=== PATIENT | male | born 1945 | race Caucasian/White ===

== ENCOUNTER 2020-01-04 08:34 | Inpatient (IN) | payer MEDICARE, OTHER ==
--- NOTE | 2020-01-04 09:50 | ED ---
General Adult HPI - General Chief complaint: Recheck/Abnormal Lab/Rx Stated complaint: Cough Time Seen by Provider: 01/04/20 08:45 Source: patient, EMS, RN notes reviewed, old records reviewed Mode of arrival: EMS Limitations: no limitations - History of Present Illness Initial comments: This is a 74-year-old male who presents emergency Department because they were tested positive for COVID. Patient has no complaints per EMS there is been no complaints. Patient denies headache patient denies numbness weakness per patient denies lightheadedness dizziness. Patient denies chest pain or palpitations. Patient denies any shortness of breath. Patient states he has an occasional cough but no sputum production. Patient denies any abdominal pain. Patient denies any nausea vomiting diarrhea. Patient denies any rashes or lesions or areas of erythema. Patient states he does not know why he is in a shelter he does have a history of COPD and he states is nonambulatory - Related Data Home Medications Medication Instructions Recorded Confirmed Acetaminophen Tab [Tylenol] 650 mg PO Q4H PRN 01/04/20 01/04/20 Ascorbic Acid [Vitamin C] 1,000 mg PO DAILY@0700 01/04/20 01/04/20 Atorvastatin [Lipitor] 20 mg PO HS@209901/04/20 01/04/20 Dorzolamide 2% [Trusopt 2%] 1 drops BOTH EYES DAILY@0700 01/04/20 01/04/20 Eltrombopag Olamine [Promacta] 50 mg PO HS@209901/04/20 01/04/20 Isosorbide Mononitrate ER [Imdur] 30 mg PO DAILY@0700 01/04/20 01/04/20 Med Plus 90 ml PO TID@0900,1300,199901/04/20 01/04/20 Sucralfate [Carafate] 1 gm PO BID@0700,209901/04/20 01/04/20 Timolol 0.5% Ophth Soln [Timoptic 1 drop BOTH EYES BID@0700,209901/04/20 01/04/20 0.5% Ophth Soln] bisacodyL [Dulcolax] 10 mg RECTAL DAILY PRN 01/04/20 01/04/20 Allergies Allergy/AdvReac Type Severity Reaction Status Date / Time tuberculin, purified protein Allergy Unknown Verified 01/04/20 11:17 deriva Review of Systems ROS Statement: Those systems with pertinent positive or pertinent negative responses have been documented in the HPI. ROS Other: All systems not noted in ROS Statement are negative. Past Medical History Past Medical History: COPD, GERD/Reflux, Hypertension, Renal Disease Additional Past Medical History / Comment(s): hydrocephlus, dysphagia History of Any Multi-Drug Resistant Organisms: None Reported Past Surgical History: Unable to Obtain Past Psychological History: Anxiety, Bipolar, Schizoaffective Disorder Smoking Status: Former smoker Past Alcohol Use History: None Reported, Abuse Past Drug Use History: None Reported General Exam - General Exam Comments Initial Comments: GENERAL: Patient is well-developed and well-nourished. Patient is nontoxic and well- hydrated and is in no acute distress. ENT: Neck is soft and supple. No significant lymphadenopathy is noted. Oropharynx is clear. Moist mucous membranes. Neck has full range of motion without eliciting any pain. EYES: The sclera were anicteric and conjunctiva were pink and moist. Extraocular movements were intact and pupils were equal round and reactive to light. Eyelids were unremarkable. PULMONARY: Unlabored respirations. Good breath sounds bilaterally. No audible rales rhonchi or wheezing was noted. CARDIOVASCULAR: There is a regular rate and rhythm without any murmurs gallops or rubs. ABDOMEN: Soft and nontender with normal bowel sounds. SKIN: Skin is clear with no lesions or rashes and otherwise unremarkable. NEUROLOGIC: Patient is alert and oriented 2. Cranial nerves II through XII are grossly int act. Patient's legs are weak bilaterally but no leg is weaker than the other. Normal speech, volume and content. Symmetrical smile. MUSCULOSKELETAL: Normal extremities with adequate strength and full range of motion. No lower extremity swelling or edema. No calf tenderness. LYMPHATICS: No significant lymphadenopathy is noted PSYCHIATRIC: Normal psychiatric evaluation. Limitations: no limitations Course Vital Signs 01/04/20 01/04/20 01/04/20 08:43 09:00 09:30 Temperature 98.2 F Pulse Rate 70 64 81 Respiratory 18 16 16 Rate Blood Pressure 129/79 129/84 141/79 O2 Sat by Pulse 99 99 100 Oximetry 01/04/20 01/04/20 01/04/20 10:00 10:30 11:00 Temperature Pulse Rate 86 61 66 Respiratory 15 18 18 Rate Blood Pressure 116/76 116/69 103/81 O2 Sat by Pulse 99 100 100 Oximetry 01/04/20 11:30 Temperature Pulse Rate 65 Respiratory 15 Rate Blood Pressure 125/70 O2 Sat by Pulse 99 Oximetry Medical Decision Making - Medical Decision Making Chest x-ray shows no obvious infiltrates. Patient remained asymptomatic throughout his ED stay. Was determined the patient needed to be admitted after the patient been discharged for over 5 hours so I admitted the patient to Dr. Perea he accepted e admission. Disposition Clinical Impression: COVID-19 Disposition: ADMITTED IP TO THIS HOSP Condition: Good Additional Instructions: Patient should be quarantined until he is cleared by a physician Referrals: Johnathon Blankenship MD [Primary Care Provider] - 1-2 days Time of Disposition: 10:24
--- NOTE | 2020-01-04 09:54 | XR ---
EXAMINATION TYPE: XR chest 1V portable DATE OF EXAM: 01/04/2020 COMPARISON: NONE HISTORY: Positive Covid test, shortness of breath and cough TECHNIQUE: Single frontal view of the chest is obtained. FINDINGS: There is patchy density at the lung bases. The cardiac silhouette size is within normal li mits. Aorta is dense. Patient is rotated. The osseous structures are remarkable for possible spinal curvature. IMPRESSION: Patchy basilar atelectasis or scarring suspected. However as indicated.
[2020-01-04] MEDS ORDERED: SODIUM CHLORIDE 0.9% 1,000 ML IV ONE (15:04)
[2020-01-04] MEDS ORDERED: bisacodyL 10 MG SUPP RECTAL PRN (17:35)
[2020-01-04] MEDS ORDERED: ACETAMINOPHEN TAB 325 MG TAB PO PRN (17:35)
--- NOTE | 2020-01-04 17:57 | XR ---
EXAMINATION TYPE: XR chest 1V portable DATE OF EXAM: 01/04/2020 COMPARISON: NONE HISTORY: Same-day radiograph 0937 hours. TECHNIQUE: Single frontal view of the chest is obtained. FINDINGS: There is unchanged mild bibasilar interstitial opacity. No pleural effusion, or pneumothor ax seen. The cardiac silhouette size is within normal limits. The osseous structures are intact. IMPRESSION: Mild bibasilar opacity may represent atelectasis/scarring versus infiltrate.
[2020-01-04 19:33] LABS: ALT 13 U/L (4-49); AST 27 U/L (17-59); African American GFR (CKD) 76 (>60 ml/min/1.73 sqM); Albumin 3.5 g/dL (3.5-5.0); Albumin/Globulin Ratio 1.3; Alkaline Phosphatase 90 U/L (38-126); Anion Gap 7 mmol/L; Blood Urea Nitrogen 31 mg/dL (9-20); C Reactive Protein 37.3 mg/L (<10.0); Calcium 8.7 mg/dL (8.4-10.2); Carbon Dioxide 25 mmol/L (22-30); Chloride 107 mmol/L (98-107); Globulin 2.8 g/dL; Glucose 89 mg/dL (74-99); LDH 624 U/L (313-618); Non-African American GFR(CKD) 66 (>60 ml/min/1.73 sqM); Potassium 4.1 mmol/L (3.5-5.1); Sodium 139 mmol/L (137-145); Total Bilirubin 0.6 mg/dL (0.2-1.3); Total Protein 6.3 g/dL (6.3-8.2)
[2020-01-04] MEDS ORDERED: [UNRECOGNIZED DRUG - OTHER] PO SCH (20:00)
[2020-01-04] MEDS: ALBUTEROL HFA INHALER INHALATION SCH (20:48)
[2020-01-04] MEDS: ZINC SULFATE 220 MG CAP PO SCH (21:47)
[2020-01-04] MEDS: ATORVASTATIN 20 MG TAB PO SCH (21:47)
[2020-01-04] MEDS: dexAMETHasone 2 MG TAB PO SCH (21:47)
[2020-01-04] MEDS: SUCRALFATE 1 GM TAB PO SCH (21:48)
[2020-01-04] MEDS: TIMOLOL 0.5% OPHTH DROPS 5 ML BTL BOTH EYES SCH (21:48)
[2020-01-04] MEDS: ENOXAPARIN 40 MG/0.4 ML SYRINGE SQ SCH (21:48)
[2020-01-04] MEDS: INSULIN ASPART (NovoLOG) 100 UNIT/ML VIAL SQ SCH (21:49)
--- NOTE | 2020-01-04 22:07 | HP ---
HISTORY AND PHYSICAL DATE OF SERVICE: 01/04/2020 CHIEF COMPLAINTS: COVID positive and cough. HISTORY OF PRESENT ILLNESS: This 74-year-old gentleman with a past medical history of multiple medical problems, including COPD, GERD, hypertension, history of DJD, history of hydrocephalus, dysphagia, anxiety, bipolar, schizophrenia, schizoaffective disorder, being followed by Dr. Johnathon Blankenship in the outpatient setting, was staying in [facility]. Apparently the patient was complaining of cough for the past few days and the patient tested positive for COVID. The patient was taken to [facility] and was admitted for further evaluation and treatment. There is no history of any shortness of breath, no history of any headache, loss of consciousness, seizures. There is no sputum production with this cough. Chest x-ray showed minimal infiltrates in the base and the patient was admitted for further evaluation and treatment. There is no history of any documented contact with COVID. PAST MEDICAL HISTORY: History of COPD, GERD, hypertension, history of hydrocephalus, anxiety, bipolar, depression. HOME MEDICATIONS: Home medications prior to admission include Dulcolax, Med Plus, Tylenol, Timoptic, Carafate, ProAmatine, Imdur, Trusopt, Lipitor, vitamin C. ALLERGIES: TUBERCULIN. Family history, social history, review of systems could not be taken because of the baseline mental status. PHYSICAL EXAMINATION: Patient is mildly confused. Pulse 65, blood pressure 124/79, respiration 18, temperature 97.7, pulse ox 96% on room air. HEENT: Conjunctivae normal. NECK: No jugular venous distention. CARDIOVASCULAR SYSTEM: S1, S2 muffled. RESPIRATORY SYSTEM: Breath sounds diminished at the bases. A few scattered rhonchi and crackles. ABDOMEN: Soft, non-tender. LEGS: No edema. No swelling. NERVOUS SYSTEM: Mild diffuse weakness. LYMPHATICS: No lymph node palpable in neck, axillae or groin. SKIN: No ulcer, rash, bleeding. JOINTS: No active deforming arthropathy. LABS: BUN is 31. Otherwise, LDH is 624 and C-reactive protein is 373. ASSESSMENT: 1. Acute COVID-19 infection with possible bibasilar pneumonia, COVID pneumonia. 2. Increased CRP and LDH. 3. History of chronic obstructive pulmonary disease. 4. History of gastroesophageal reflux disease. 5. Hypertension. 6. History of chronic kidney disease. 7. History of hydrocephalus. 8. History of dysphagia. 9. Chronic metabolic encephalopathy. 10.Anxiety, bipolar, schizoaffective disorder. 11.Remote history of nicotine dependence. 12.Remote history of ETOH abuse. RECOMMENDATIONS AND DISCUSSION: In this 74-year-old gentleman who presented with multiple complex medical issues, we will monitor the patient closely, continue the current medications, continue symptomatic treatment, continue bronchodilators, zinc, Lovenox. Will also obtain a D- dimer. If it is positive, I would recommend CT angio of the chest. Otherwise CT chest without any IV contrast looking for any infiltrates. We will also consult Dr. Sherman regarding the COVID management as well as COPD management. Evaluate the patient for possible remdesivir. A copy of this dictation is being forwarded to Dr. Johnathon Blankenship, who is the primary physician. DIANNE / MAYA: [id number] /
[2020-01-04] MEDS: ELTROMBOPAG OLAMINE 50 MG PO SCH (22:31)
[2020-01-05 01:32] LABS: Glucose,Whole Blood 92 mg/dL (75-99)
[2020-01-05 06:22] LABS: Basophils % (A) 0 %; Eosinophils % (A) 0 %; HCT 43.2 % (39.0-53.0); HGB 13.6 gm/dL (13.0-17.5); Lymphocytes # (A) 0.9 k/uL (1.0-4.8); Lymphocytes % (A) 16 %; MCH 29.2 pg (25.0-35.0); MCHC 31.4 g/dL (31.0-37.0); MCV 92.7 fL (80.0-100.0); Mean Platelet Volume 9.2; Monocytes # (A) 0.1 k/uL (0-1.0); Monocytes % (A) 2 %; Neutrophils # (A) 4.3 k/uL (1.3-7.7); Neutrophils % (A) 81 %; Platelet Count 176 k/uL (150-450); RBC 4.66 m/uL (4.30-5.90); RDW 13.8 % (11.5-15.5); WBC 5.3 k/uL (3.8-10.6)
[2020-01-05 07:24] LABS: Glucose,Whole Blood 115 mg/dL (75-99)
[2020-01-05] MEDS: INSULIN ASPART (NovoLOG) 100 UNIT/ML VIAL SQ SCH ×4 (07:31→21:05)
[2020-01-05] MEDS: dexAMETHasone 2 MG TAB PO SCH (08:09)
[2020-01-05] MEDS: ASCORBIC ACID 500 MG TAB PO SCH (08:09)
[2020-01-05] MEDS: ZINC SULFATE 220 MG CAP PO SCH (08:09)
[2020-01-05] MEDS: SUCRALFATE 1 GM TAB PO SCH ×2 (08:09→21:06)
[2020-01-05] MEDS: ISOSORBIDE MONONITRATE ER 30 MG TAB.ER.24H PO SCH (08:09)
[2020-01-05] MEDS: TIMOLOL 0.5% OPHTH DROPS 5 ML BTL BOTH EYES SCH ×2 (08:10→21:10)
[2020-01-05] MEDS: ENOXAPARIN 40 MG/0.4 ML SYRINGE SQ SCH ×2 (08:10→21:00)
[2020-01-05] MEDS: DORZOLAMIDE HCL 2% DROPS 10 ML BTL BOTH EYES SCH (08:10)
[2020-01-05] MEDS: ALBUTEROL HFA INHALER INHALATION SCH ×3 (08:17→20:06)
[2020-01-05 09:17] LABS: African American GFR (CKD) 69.6 (60.0-200.0); Anion Gap 8.8 mmol/L (4.00-12.00); BUN/Creat Ratio 27.5 Ratio (12.00-20.00); Calcium 8.6 mg/dL (8.7-10.3); Carbon Dioxide 25.2 mmol/L (21.6-31.8); Non-African American GFR(CKD) 60.1 (60.0-200.0); Potassium 4.8 mmol/L (3.5-5.5)
[2020-01-05 11:31] LABS: Glucose,Whole Blood 235 mg/dL (75-99)
--- NOTE | 2020-01-05 14:54 | CONS ---
CONSULTATION HISTORY: This is a 74-year-old male who was admitted through the emergency room. The patient apparently came from the [facility] and went to [facility]. The patient was then transferred to our emergency room by EMS. The patient apparently tested positive for COVID. The patient apparently has had no complaints. Denies any headache. Denies any numbness or weakness. Denies any lightheadedness and dizziness. He also denied any chest pain or palpitations, shortness of breath, cough, wheezing, phlegm production, fever, chills, nausea, vomiting, diarrhea, abdominal pain or any genitourinary complaints. The patient is completely asymptomatic. The patient has a saturation of 97% on room air. The patient has been afebrile here. Again not sure why this patient was admitted to this hospital. MEDICATIONS: Reviewed. They include Tylenol, ascorbic acid, Lipitor eye drops, Promacta, Imdur, Carafate and Dulcolax. ALLERGIES: PPD. MEDICAL HISTORY: COPD, GERD, hypertension, and chronic kidney disease. He also apparently has a history of hydrocephalus, and dysphagia. SURGICAL HISTORY: Not known. SOCIAL HISTORY: Positive for previous tobacco use. Alcohol history is not reported, but apparently there is possibly some history of alcohol abuse in the past. No illicit drugs. FAMILY HISTORY: Noncontributory. REVIEW OF SYSTEMS: CONSTITUTIONAL: Negative. NEUROLOGIC: Negative. HEENT: Negative. CARDIOVASCULAR: Negative. PULMONARY: Negative. GI: Negative. : Negative. RHEUMATOLOGIC: Negative. IMMUNOLOGIC: Negative. ENDOCRINOLOGIC: Negative. DERMATOLOGIC negative. PHYSICAL EXAMINATION: VITAL SIGNS: Current vital signs are reviewed, temperature 98.1 and he has been afebrile since she has been here. Heart rate 75, respiratory rate 17, blood pressure 126/80, mean 95, and room air saturation 97%. GENERAL: Appears in no acute distress. HEENT: Examination is grossly unremarkable. NECK: Supple full range of motion. CARDIOVASCULAR: Examination reveals regular rhythm rate. Heart rate 75. S1, S2 normal. No S3, S4, or murmur. LUNGS: Reveal clear breath sounds. No wheezes, rhonchi, or crackles. Breath sounds equal bilaterally. ABDOMEN: Soft bowel sounds are heard. EXTREMITIES: Intact. No cyanosis, clubbing, or edema. SKIN: Without rash. NEUROLOGIC: Examination is brief but nonfocal. LAB DATA: Reviewed. CBC is normal. D-dimer 0.77. Sodium, potassium, chloride, CO2 all normal anion gap normal. BUN and creatinine were 33 and 1.2. Calcium 8.6, LDH 624. C- reactive protein 37.3. Procalcitonin is normal at 0.06. Microbiologic studies are negative. Chest x-ray from January 03 suggests some minimal atelectasis at the bases. Chest x-ray followup on the same day. Again, shows evidence of primarily atelectasis. MEDICATIONS: Medications are reviewed. The patient is currently on Tylenol, albuterol inhaler, ascorbic acid, Lipitor, Dulcolax, Decadron, eye drops, Promacta, Lovenox, insulin, Imdur, 0.9 at 75 mL an hour, Carafate, timolol eye drops, and zinc. ASSESSMENT: 1. COVID-19 positive patient, lacks all complaints at this time including pulmonary complaints. 2. History of apparent COPD from previous tobacco use. 3. History of gastroesophageal reflux disease. 4. Hypertension. 5. Chronic kidney disease. 6. Hyperlipidemia. 7. History of hydrocephalus. 8. History of dysphagia. PLAN: The patient's medications are reviewed. Everything appears to be appropriate. I do not know that I would even give this patient Decadron at this time. Again, he lacks all pulmonary complaints including shortness of breath, chest tightness wheezing cough or phlegm production. X-rays are pretty unremarkable. No additional recommendations are made. In my opinion, the patient can be transferred back to the [facility]. MMARLYNL / DARION: [id number] /
[2020-01-05 16:39] LABS: Glucose,Whole Blood 204 mg/dL (75-99)
--- NOTE | 2020-01-05 19:00 | PN ---
PROGRESS NOTE DATE OF SERVICE: 01/05/2020 This 74-year-old gentleman admitted with acute COVID-19 infection, Covid -19 pneumonia is being closely monitored at this time. The patient transferred from an ECF at this time. CRP is 37.3, procalcitonin is normal. D-dimer was 0.77. A chest x-ray which was personally reviewed by me showed mild bibasilar opacity, possible atelectasis versus infiltrate. Past medical history reviewed. REVIEW OF SYSTEM: Could not be taken, the patient mildly confused. MEDICATIONS: Current medications are reviewed and include: 1. Tylenol. 2. Ventolin. 3. Vitamin C. 4. Lipitor. 5. Hexadrol. 6. Lovenox. 7. Imdur. 8. Doses are reviewed. PHYSICAL EXAMINATION: Alert and oriented times three. Pulse 75. Blood pressure 126/88, respirations 17, temperature 98.2, pulse ox 97% on room air. HEENT: Conjunctivae normal. NECK: No JVD. CARDIOVASCULAR: S1, S2 muffled. RESPIRATION: Breath sounds diminished in the bases. A few scattered rhonchi and crackles. ABDOMEN: Soft. NERVOUS SYSTEM: No focal deficits. ASSESSMENT: 1. Acute COVID-19 infection with possible bibasilar pneumonia. Covid pneumonia. 2. Increased CRP, LDH. 3. History of chronic obstructive pulmonary disease. 4. Elevated D-dimer, rule out pulmonary embolism. 5. History of gastroesophageal reflux disease. 6. Hypertension. 7. History of chronic kidney disease. 8. History of hydrocephalus. 9. History of dysphagia. 10.Chronic metabolic encephalopathy. 11.Anxiety, bipolar, schizoaffective disorder. 12.Remote history of nicotine dependence. 13.Remote history of ETOH abuse. RECOMMENDATIONS AND DISCUSSION: Recommend to continue current medications, management and symptomatic treatment. I would also recommend a CT angio because of elevated D-dimer. We will continue to monitor. Guarded prognosis because of multiple complex medical issues. Further recommendations to follow. The patient is on Lovenox 40 mg subcu b.i.d. and other medications. Prognosis guarded. MMODL / IJN: [id number] /
--- NOTE | 2020-01-05 20:39 | CT ---
EXAMINATION TYPE: CT angio chest DATE OF EXAM: 01/05/2020 COMPARISON: None HISTORY: SOB, positive covid CT DLP: 258.5 mGycm Automated exposure control for dose reduction was used. CONTRAST: Performed with IV Contrast, patient injected with 76cc mL of Isovue 370. Images obtained from the thoracic inlet to the diaphragm with IV contrast. There are 3-D post process ed images. There is diffuse pulmonary emphysema. There is no mediastinal adenopathy. There are no hilar masses. There is normal contrast opacification of the pulmonary arteries. There are no filling defects. There is some mild interstitial infiltrate and subsegmental atelectasis at the posterior lung bases. There is no pulmonary mass. There is no pleural effusion. Facet aorta is intact. There is no sign of aneurysm or dissection. Ascending aorta measures 3.2 cm. Thoracic spine is intact. Sternum is intact. I see no bony destructive process. IMPRESSION: Pulmonary emphysema and pulmonary interstitial fibrotic changes. No evidence of pulmonary embolism.
[2020-01-05 20:47] LABS: Glucose,Whole Blood 164 mg/dL (75-99)
[2020-01-05] MEDS: ATORVASTATIN 20 MG TAB PO SCH (21:06)
[2020-01-06] MEDS: ELTROMBOPAG OLAMINE 50 MG PO SCH ×2 (00:39→20:21)
[2020-01-06 06:01] LABS: Basophils % (A) 0 %; Eosinophils % (A) 0 %; HCT 36.8 % (39.0-53.0); Lymphocytes # (A) 1.1 k/uL (1.0-4.8); Lymphocytes % (A) 14 %; MCH 30.2 pg (25.0-35.0); MCHC 32.6 g/dL (31.0-37.0); MCV 92.7 fL (80.0-100.0); Mean Platelet Volume 8.7; Monocytes # (A) 0.5 k/uL (0-1.0); Monocytes % (A) 6 %; Neutrophils # (A) 6.5 k/uL (1.3-7.7); Neutrophils % (A) 79 %; Platelet Count 171 k/uL (150-450); RBC 3.97 m/uL (4.30-5.90); RDW 13.4 % (11.5-15.5); WBC 8.2 k/uL (3.8-10.6)
[2020-01-06 06:51] LABS: Glucose,Whole Blood 94 mg/dL (75-99)
[2020-01-06] MEDS: INSULIN ASPART (NovoLOG) 100 UNIT/ML VIAL SQ SCH ×3 (06:52→17:00)
[2020-01-06] MEDS: ZINC SULFATE 220 MG CAP PO SCH (08:04)
[2020-01-06] MEDS: ASCORBIC ACID 500 MG TAB PO SCH (08:04)
[2020-01-06] MEDS: ISOSORBIDE MONONITRATE ER 30 MG TAB.ER.24H PO SCH (08:04)
[2020-01-06] MEDS: dexAMETHasone 4 MG TAB PO SCH (08:04)
[2020-01-06] MEDS: SUCRALFATE 1 GM TAB PO SCH ×2 (08:04→20:15)
[2020-01-06] MEDS: ENOXAPARIN 40 MG/0.4 ML SYRINGE SQ SCH ×2 (08:04→20:15)
[2020-01-06] MEDS: TIMOLOL 0.5% OPHTH DROPS 5 ML BTL BOTH EYES SCH ×2 (08:05→20:16)
[2020-01-06] MEDS: DORZOLAMIDE HCL 2% DROPS 10 ML BTL BOTH EYES SCH (08:05)
[2020-01-06] MEDS: ALBUTEROL HFA INHALER INHALATION SCH ×3 (08:32→19:37)
[2020-01-06 09:30] LABS: African American GFR (CKD) 63.2 (60.0-200.0); Anion Gap 3.2 mmol/L (4.00-12.00); BUN/Creat Ratio 30.77 Ratio (12.00-20.00); Calcium 8.6 mg/dL (8.7-10.3); Carbon Dioxide 28.8 mmol/L (21.6-31.8); Non-African American GFR(CKD) 54.5 (60.0-200.0); Potassium 4.6 mmol/L (3.5-5.5)
[2020-01-06 11:15] LABS: Glucose,Whole Blood 126 mg/dL (75-99)
--- NOTE | 2020-01-06 11:23 | P.PN ---
Subjective Progress Note Date: 01/06/20 Principal diagnosis: CoVID 19 positivity This is a 74-year-old gentleman with a known history of COPD, gastric esophageal reflux is, hypertension, chronic kidney disease, hydrocephalus, dysphagia. He resides at [facility]. He was found to be coasted 19 pos itive as there was an outbreak in that facility. He was transferred to [facility] and subsequently transferred here. The patient had no complaints. He had denied any headache weakness shortness of breath cough or congestion. He was 97% on room air. He was completely asymptomatic yesterday. He is seen again today in follow-up on the regular medical floor. Currently maintaining O2 saturations at 99% on room air. Temperature 98.6. Hemodynamically stable. White count 8.2. Hemoglobin 12.0. Sodium 138. Potassium 4.6. Creatinine 1.3. CT angiogram of the chest revealed pulmonary emphysema and pulmonary interstitial fibrotic changes. No evidence of pulmonary embolism. He is cu rrently on dexamethasone, vitamin C, zinc. Objective - Vital Signs Vital signs: Vital Signs Temp 98.6 F 01/06/20 07:00 Pulse 51 L 01/06/20 07:00 Resp 18 01/06/20 07:00 BP 110/58 01/06/20 07:00 Pulse Ox 99 01/06/20 07:00 Intake & Output 01/05/20 01/06/20 01/06/20 18:59 06:59 18:59 Intake Total 525 400 Balance 525 400 Intake: Intake, IV Titration 525 Amount Sodium Chloride 0.9% 1, 525 000 ml @ 75 mls/hr IV . [id number] ONE Rx#:[id number] Oral 400 Other: Voiding Method Urinal Urinal Urinal Diaper Diaper Diaper Incontinent Incontinent Incontinent # Voids 1 # Bowel Movements 1 1 - Exam GENERAL EXAM: Alert, 74-year-old gentleman, on room air, comfortable in no apparent distress. HEAD: Normocephalic. EYES: Normal reaction of pupils, equal size. NOSE: Clear with pink turbinates. THROAT: No erythema or exudates. NECK: No masses, no JVD. CHEST: No chest wall deformity. LUNGS: Equal air entry with no crackles, wheeze, rhonchi or dullness. CVS: S1 and S2 normal with no audible murmur, regular rhythm. ABDOMEN: No hepatosplenomegaly, normal bowel sounds, no guarding or rigidity. SPINE: No scoliosis or deformity SKIN: No rashes CENTRAL NERVOUS SYSTEM: Brief but nonfocal, tone is normal in all 4 extremities. EXTREMITIES: There is no peripheral edema. No clubbing, no cyanosis. Peripheral pulses are intact. - Labs CBC & Chem 7: 01/06/20 05:38 01/06/20 05:38 Labs: Abnormal Lab Results - Last 24 Hours (Table) 01/05/20 01/05/20 01/05/20 Range/Units 11:29 16:39 20:45 RBC (4.30-5.90) m/uL Hgb (13.0-17.5) gm/dL Hct (39.0-53.0) % Anion Gap (4.00-12.00) mmol/L BUN (9.0-27.0) mg/dL Est GFR (CKD-EPI)NonAf (60.0-200.0) BUN/Creatinine Ratio (12.00-20.00) Ratio Glucose (70-110) mg/dL POC Glucose (mg/dL) 235 H 204 H 164 H (75-99) mg/dL Calcium (8.7-10.3) mg/dL 01/06/20 01/06/20 01/06/20 Range/Units 05:38 05:38 11:14 RBC 3.97 L (4.30-5.90) m/uL Hgb 12.0 L (13.0-17.5) gm/dL Hct 36.8 L (39.0-53.0) % Anion Gap 3.20 L (4.00-12.00) mmol/L BUN 40.0 H (9.0-27.0) mg/dL Est GFR (CKD-EPI)NonAf 54.5 L (60.0-200.0) BUN/Creatinine Ratio 30.77 H (12.00-20.00) Ratio Glucose 115 H (70-110) mg/dL POC Glucose (mg/dL) 126 H (75-99) mg/dL Calcium 8.6 L (8.7-10.3) mg/dL Assessment and Plan Assessment: 1 Covid 19 positivity, asymptomatic 2 History of chronic obstructive pulmonary disease, currently inactive in stable 3 History of previous tobacco use 4 Gastroesophageal reflux disease 5 Hypertension 6 Chronic kidney disease 7 Hyperlipidemia 8 History of hydrocephalus 9 History of dysphagia Plan: The patient was seen and evaluated by Dr. Lane Morris for transfer back to [facility] I, the cosigning physician, performed a history & physical examination of the patient. Lungs sounds are clear. Maintaining good O2 saturations in the 90s on room air. I discussed the assessment and plan of care with my nurse practitioner, Yuridia Ruiz. I attest to the above note as dictated by her.
[2020-01-06 16:41] LABS: Glucose,Whole Blood 138 mg/dL (75-99)
--- NOTE | 2020-01-06 17:08 | PN ---
PROGRESS NOTE DATE OF SERVICE: 01/06/2020 DATE OF SERVICE: This 74-year-old gentleman who was admitted with acute COVID-19 infection and possibly bibasilar pneumonia. A chest CT was done today which showed probably evidence of early COVID-19 pneumonia. Patient closely monitored at this time. PAST MEDICAL HISTORY: Reviewed. REVIEW OF SYSTEMS: CARDIOVASCULAR SYSTEM: No angina or palpitations. RESPIRATORY: No cough. GI: As mentioned earlier. : No dysuria. NERVOUS SYSTEM: No numbness or weakness. CURRENT MEDICATIONS: Reviewed and include: Tylenol p.r.n., Ventolin, vitamin C, Lipitor, Doculax, Adderall, Trusopt, Lovenox, Imdur, Carafate, Timoptic, oral zinc. PHYSICAL EXAM: Patient is alert, oriented x2. Pulse 53, blood pressure 109/60, respiration 18, temperature 98 degrees, pulse ox 94% on room air. HEENT: Conjunctivae normal. Oral mucosa moist. NECK: No jugular venous distention. No lymph node enlargement. CARDIOVASCULAR: S1, S2, muffled. No S3, no S4, RESPIRATORY: Diminished breath sounds at the bases. /a few scattered rhonchi. ABDOMEN: Soft, nontender. LEGS: No edema, no swelling. NERVOUS SYSTEM: No focal deficits. LABS: WBC 8.2, hemoglobin is 12 and anion gap is 3.2. Glucose 126. ASSESSMENT: 1. Acute COVID-19 infection with possibly bibasilar COVID-19 pneumonia. 2. Increased CRP, LDH. 3. History of chronic obstructive pulmonary disease. 4. Elevated D-dimer, no evidence of pulmonary embolism. 5. History of gastroesophageal reflux disease. 6. Hypertension. 7. History of chronic kidney disease. 8. History of hydrocephalus. 9. History of dysphagia. 10.Chronic metabolic encephalopathy. 11.Anxiety, bipolar schizoaffective disorder. 12.Remote history of nicotine dependence. 13.History of remote ETOH abuse. RECOMMENDATIONS AND DISCUSSION: In this 74-year-old gentleman who presented with multiple complex medical issues, we will monitor the patient closely, continue the current management and symptomatic treatment. Otherwise, at this time we will continue supportive treatment. The patient is oxygenating well. The procalcitonin level was normal. Continue the rest of the medications and follow closely. Social Work and Case Management for placement of this patient was has got a COVID-19 pneumonia from a [place] facility who will not take the patient back at this point. Once again, the prognosis is guarded and continue to monitor. Further recommendations to follow. MMODL / IJN: [id number] /
[2020-01-06] MEDS: ATORVASTATIN 20 MG TAB PO SCH (20:15)
[2020-01-06 21:16] LABS: Glucose,Whole Blood 121 mg/dL (75-99)
[2020-01-07] MEDS: INSULIN ASPART (NovoLOG) 100 UNIT/ML VIAL SQ SCH ×6 (01:29→20:25)
[2020-01-07 06:25] LABS: Basophils % (A) 0 %; Eosinophils % (A) 0 %; HCT 39.4 % (39.0-53.0); HGB 12.4 gm/dL (13.0-17.5); Lymphocytes # (A) 1.3 k/uL (1.0-4.8); Lymphocytes % (A) 16 %; MCH 29.3 pg (25.0-35.0); MCHC 31.6 g/dL (31.0-37.0); MCV 92.8 fL (80.0-100.0); Mean Platelet Volume 8.9; Monocytes # (A) 0.4 k/uL (0-1.0); Monocytes % (A) 5 %; Neutrophils # (A) 6.5 k/uL (1.3-7.7); Neutrophils % (A) 79 %; Platelet Count 156 k/uL (150-450); RBC 4.25 m/uL (4.30-5.90); RDW 13.6 % (11.5-15.5); WBC 8.2 k/uL (3.8-10.6)
[2020-01-07 07:03] LABS: Glucose,Whole Blood 99 mg/dL (75-99)
[2020-01-07] MEDS: ALBUTEROL HFA INHALER INHALATION SCH ×3 (07:15→19:51)
[2020-01-07] MEDS: ASCORBIC ACID 500 MG TAB PO SCH (07:37)
[2020-01-07] MEDS: SUCRALFATE 1 GM TAB PO SCH ×2 (07:37→20:25)
[2020-01-07] MEDS: ZINC SULFATE 220 MG CAP PO SCH (07:37)
[2020-01-07] MEDS: ENOXAPARIN 40 MG/0.4 ML SYRINGE SQ SCH ×2 (07:37→20:25)
[2020-01-07] MEDS: dexAMETHasone 4 MG TAB PO SCH (07:37)
[2020-01-07] MEDS: ISOSORBIDE MONONITRATE ER 30 MG TAB.ER.24H PO SCH (07:37)
[2020-01-07] MEDS: DORZOLAMIDE HCL 2% DROPS 10 ML BTL BOTH EYES SCH (07:38)
[2020-01-07] MEDS: TIMOLOL 0.5% OPHTH DROPS 5 ML BTL BOTH EYES SCH ×2 (07:38→20:25)
[2020-01-07 07:53] VITALS: RESP 20
[2020-01-07 11:45] LABS: Glucose,Whole Blood 108 mg/dL (75-99)
--- NOTE | 2020-01-07 14:10 | P.PN ---
Subjective Progress Note Date: 01/07/20 Principal diagnosis: COVID 19 infection This is a 74-year-old gentleman with a known history of COPD, gastric esophageal reflux is, hypertension, chronic kidney disease, hydrocephalus, dysphagia. He resides at [facility]. He was found to be coasted 19 posit maria victoria as there was an outbreak in that facility. He was transferred to [facility] and subsequently transferred here. The patient had no complaints. He had denied any headache weakness shortness of breath cough or congestion. He was 97% on room air. He was completely asymptomatic yesterday. He is seen again today in follow-up on the regular medical floor. Currently maintaining O2 saturations at 99% on room air. Temperature 98.6. Hemodynamically stable. White count 8.2. Hemoglobin 12.0. Sodium 138. Potassium 4.6. Creatinine 1.3. CT angiogram of the chest revealed pulmonary emphysema and pulmonary interstitial fibrotic changes. No evidence of pulmonary embolism. He is curr ently on dexamethasone, vitamin C, zinc. On 01/07/2020 patient seen in follow-up on general medical surgical floor. He is awake and alert, in no acute distress, he is resting comfortably in bed, he denies any cough, he is breathing comfortably, no nausea or vomiting, patient is slightly confused at times, safety precautions are in place. Has no specific complaints. There is to be in no acute distress. He doesn't remember the pulse ox 90-99%, his been afebrile, his respirations are nonlabored, he has had no acute events overnight Objective - Vital Signs Vital signs: Vital Signs Temp 97.6 F 01/07/20 07:00 Pulse 65 01/07/20 07:00 Resp 20 01/07/20 07:00 BP 167/87 01/07/20 07:00 Pulse Ox 99 01/07/20 07:00 Intake & Output 01/06/20 01/07/20 01/07/20 18:59 06:59 18:59 Intake Total 940 Balance 940 Intake: Oral 940 Other: Voiding Method Urinal Diaper Diaper Diaper Incontinent Incontinent Incontinent # Voids 3 1 - Exam GENERAL EXAM: Alert, 74-year-old gentleman, on room air pulse ox of 99%, comfortable in no apparent distress. HEAD: Normocephalic. EYES: Normal reaction of pupils, equal size. NOSE: Clear with pink turbinates. THROAT: No erythema or exudates. NECK: No masses, no JVD. CHEST: No chest wall deformity. LUNGS: Equal air entry with no crackles, wheeze, rhonchi or dullness. CVS: S1 and S2 normal with no audible murmur, regular rhythm. ABDOMEN: No hepatosplenomegaly, normal bowel sounds, no guarding or rigidity. SPINE: No scoliosis or deformity SKIN: No rashes CENTRAL NERVOUS SYSTEM: Brief but nonfocal, tone is normal in all 4 extremities. EXTREMITIES: There is no peripheral edema. No clubbing, no cyanosis. Peripheral pulses are intact. - Labs CBC & Chem 7: 01/07/20 05:49 01/06/20 05:38 Labs: Abnormal Lab Results - Last 24 Hours (Table) 01/06/20 01/06/20 01/07/20 Range/Units 16:40 21:14 05:49 RBC 4.25 L (4.30-5.90) m/uL Hgb 12.4 L (13.0-17.5) gm/dL POC Glucose (mg/dL) 138 H 121 H (75-99) mg/dL 01/07/20 Range/Units 11:43 RBC (4.30-5.90) m/uL Hgb (13.0-17.5) gm/dL POC Glucose (mg/dL) 108 H (75-99) mg/dL Assessment and Plan Plan: Assessment: 1 Covid 19 positivity, asymptomatic 2 History of chronic obstructive pulmonary disease, currently inactive in stable 3 History of previous tobacco use 4 Gastroesophageal reflux disease 5 Hypertension 6 Chronic kidney disease 7 Hyperlipidemia 8 History of hydrocephalus 9 History of dysphagia Plan: Patient is in no acute distress, he is on room air, maintained stable O2 saturations, continue current medical treatment, no acute events overnight, will reorder Covid 19 testing. I performed a history & physical examination of the patient and discussed their management with my nurse practitioner, Stephenie Dawn. I reviewed the nurse practitioner's note and agree with the documented findings and plan of care. Lung sounds are positive for diffuse wheezes throughout the lung echevarria. The findings and the impression was discussed with the patient. I attest to the documentation by the nurse practitioner. Time with Patient: Less than 30
[2020-01-07 15:46] LABS: African American GFR (CKD) 77.3 (60.0-200.0); Anion Gap 9.1 mmol/L (4.00-12.00); BUN/Creat Ratio 32.73 Ratio (12.00-20.00); Calcium 8.8 mg/dL (8.7-10.3); Carbon Dioxide 24.9 mmol/L (21.6-31.8); Non-African American GFR(CKD) 66.7 (60.0-200.0)
[2020-01-07 16:34] LABS: Glucose,Whole Blood 153 mg/dL (75-99)
--- NOTE | 2020-01-07 19:52 | P.PN ---
Subjective This is a pleasant 74-year-old years old male from [facility] was sent for positive covid test. Patient has been evaluated by bologna maker currently patient is awake and alert with some confusion. No respiratory distress. No abdominal pain. No chest pain. No change in urine or bowel habits. No fever. He is saturating 90s on room air. 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 Well developed, well nourished. HEENT: Pupils are round and equally reacting to light. EOMI. No scleral icterus. No conjunctival pallor. Normocephalic, atraumatic. No pharyngeal erythema. No thyromegaly. CARDIOVASCULAR: S1 and S2 present. No murmurs, rubs, or gallops. PULMONARY: Chest is clear to auscultation, no wheezing or crackles. ABDOMEN: Soft, nontender, nondistended, normoactive bowel sounds. No palpable organomegaly. MUSCULOSKELETAL: No joint swelling or deformity. EXTREMITIES: No cyanosis, clubbing, or pedal edema. NEUROLOGICAL: Gross neurological examination did not reveal any focal deficits. SKIN: No rashes. no petechiae. - Labs CBC & Chem 7: 01/07/20 05:49 01/07/20 05:49 Labs: Abnormal Lab Results - Last 24 Hours (Table) 01/06/20 01/07/20 01/07/20 Range/Units 21:14 05:49 05:49 RBC 4.25 L (4.30-5.90) m/uL Hgb 12.4 L (13.0-17.5) gm/dL BUN 36.0 H (9.0-27.0) mg/dL BUN/Creatinine Ratio 32.73 H (12.00-20.00) Ratio POC Glucose (mg/dL) 121 H (75-99) mg/dL 01/07/20 01/07/20 Range/Units 11:43 16:30 RBC (4.30-5.90) m/uL Hgb (13.0-17.5) gm/dL BUN (9.0-27.0) mg/dL BUN/Creatinine Ratio (12.00-20.00) Ratio POC Glucose (mg/dL) 108 H 153 H (75-99) mg/dL Assessment and Plan Assessment: -positive covid test without fever or hypoxia Chronic obstructive pulmonary disease, no acute exacerbation GERD Hypertension Chronic kidney disease History of hydrocephalus History of dysphagia Chronic metabolic encephalopathy Anxiety, bipolar and schizoaffective disorder, with an active issue Plan: This is a pleasant 74 years old male who presents with positive for covid test , no fever, no hypoxia, pulmonary team on the case Labs and medication were reviewed.. Continue same treatment. Continue with symptomatic treatment. Resume home medication. Monitor lytes and vitals. DVT and GI prophylaxis. Further recommendationsas per clinical course of the patient DVT prophylaxis: Subcutaneous lovenox Pending placement, patient is medically stable
[2020-01-07 20:15] LABS: Glucose,Whole Blood 139 mg/dL (75-99)
[2020-01-07] MEDS: ATORVASTATIN 20 MG TAB PO SCH (20:25)
[2020-01-07] MEDS: ELTROMBOPAG OLAMINE 50 MG PO SCH (20:26)
[2020-01-08] MEDS: DORZOLAMIDE HCL 2% DROPS 10 ML BTL BOTH EYES SCH (06:01)
[2020-01-08] MEDS: ASCORBIC ACID 500 MG TAB PO SCH (06:01)
[2020-01-08] MEDS: SUCRALFATE 1 GM TAB PO SCH (06:01)
[2020-01-08] MEDS: ISOSORBIDE MONONITRATE ER 30 MG TAB.ER.24H PO SCH (06:01)
[2020-01-08] MEDS: TIMOLOL 0.5% OPHTH DROPS 5 ML BTL BOTH EYES SCH (06:02)
[2020-01-08 07:04] LABS: Glucose,Whole Blood 89 mg/dL (75-99)
[2020-01-08] MEDS: INSULIN ASPART (NovoLOG) 100 UNIT/ML VIAL SQ SCH ×2 (07:19→11:51)
[2020-01-08 07:45] VITALS: TEMP 98
[2020-01-08] MEDS: ENOXAPARIN 40 MG/0.4 ML SYRINGE SQ SCH (08:43)
[2020-01-08] MEDS: dexAMETHasone 4 MG TAB PO SCH (08:43)
[2020-01-08] MEDS: ZINC SULFATE 220 MG CAP PO SCH (08:43)
[2020-01-08] MEDS: ALBUTEROL HFA INHALER INHALATION SCH ×2 (08:51→12:45)
[2020-01-08 11:40] LABS: Glucose,Whole Blood 109 mg/dL (75-99)
--- NOTE | 2020-01-08 12:53 | P.PN ---
Subjective This is a pleasant 74-year-old years old male from [facility] was sent for positive covid test. Patient has been evaluated by air brake operator currently patient is awake and alert with some confusion. No respiratory distress. No abdominal pain. No chest pain. No change in urine or bowel habits. No fever. He is saturating 90s on room air. 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 01/08/2020 Patient is awake, no respiratory distress Vital signs stable Patient was followed by pulmonary service Patient is medically stable pending placement Objective - Vital Signs Vital signs: Vital Signs Temp 98.0 F 01/08/20 07:00 Pulse 47 L 01/08/20 07:00 Resp 20 01/08/20 07:00 BP 144/72 01/08/20 07:00 Pulse Ox 99 01/08/20 07:00 Intake & Output 01/07/20 01/08/20 01/08/20 18:59 06:59 18:59 Intake Total 300 300 Balance 300 300 Intake: Oral 300 300 Other: Voiding Method Diaper Urinal Incontinent Diaper Incontinent # Voids 2 - Exam GENERAL: The patient is alert and oriented x2-3, not in any acute distress. Well developed, well nourished. HEENT: Pupils are round and equally reacting to light. EOMI. No scleral icterus. No conjunctival pallor. Normocephalic, atraumatic. No pharyngeal erythema. No thyromegaly. CARDIOVASCULAR: S1 and S2 present. No murmurs, rubs, or gallops. PULMONARY: Chest is clear to auscultation, no wheezing or crackles. ABDOMEN: Soft, nontender, nondistended, normoactive bowel sounds. No palpable organomegaly. MUSCULOSKELETAL: No joint swelling or deformity. EXTREMITIES: No cyanosis, clubbing, or pedal edema. NEUROLOGICAL: Gross neurological examination did not reveal any focal deficits. SKIN: No rashes. no petechiae. - Labs CBC & Chem 7: 01/07/20 05:49 01/07/20 05:49 Labs: Abnormal Lab Results - Last 24 Hours (Table) 01/07/20 01/07/20 01/07/20 Range/Units 05:49 11:20 16:30 BUN 36.0 H (9.0-27.0) mg/dL BUN/Creatinine Ratio 32.73 H (12.00-20.00) Ratio POC Glucose (mg/dL) 153 H (75-99) mg/dL Coronavirus (PCR) Detected H (Not Detected) 01/07/20 01/08/20 Range/Units 20:09 11:38 BUN (9.0-27.0) mg/dL BUN/Creatinine Ratio (12.00-20.00) Ratio POC Glucose (mg/dL) 139 H 109 H (75-99) mg/dL Coronavirus (PCR) (Not Detected) Assessment and Plan Assessment: -positive covid test without fever or hypoxia Chronic obstructive pulmonary disease, no acute exacerbation GERD Hypertension Chronic kidney disease History of hydrocephalus History of dysphagia Chronic metabolic encephalopathy Anxiety, bipolar and schizoaffective disorder, with an active issue Plan: This is a pleasant 74 years old male who presents with positive for covid test , no fever, no hypoxia, pulmonary team on the case Labs and medication were reviewed.. Continue same treatment. Continue with symptomatic treatment. Resume home medication. Monitor lytes and vitals. DVT and GI prophylaxis. Further recommendationsas per clinical course of the patient DVT prophylaxis: Subcutaneous lovenox Pending placement, patient is medically stable
--- NOTE | 2020-01-08 14:33 | P.DS ---
Providers Date of admission: 01/07/20 08:03 Attending physician: Darryn Huff Consults: 01/04/20 19:50 Consult Physician Routine Consulting Provider: Jon Sherman Consult Reason/Comments: covid pneumonia Do you want consulting provider notified?: Yes Primary care physician: Johnathon Blankenship Hospital Course: Diagnoses: Covid 19 positivity, asymptomatic History of chronic obstructive pulmonary disease, currently inactive in stable History of previous tobacco use Gastroesophageal reflux disease Hypertension Chronic kidney disease Hyperlipidemia History of hydrocephalus History of dysphagia hospital course: This is a 74-year-old gentleman with a known history of COPD, gastric esophageal reflux is, hypertension, chronic kidney disease, hydrocephalus, dysphagia. He resides at [facility]. He was found to be coasted 19 positive as there was an outbreak in that facility. He was transferred to [facility] and subsequently transferred here. The patient had no complaints. He had denied any headache weakness shortness of breath cough or congestion. He was 97% on room air. He was completely asymptomatic. He is seen again today in follow-up on the regular medical floor. Currently maintaining O2 saturations at 99% on room air. Risks of vitals and labs are stable. Heart rate was 46 during sleep but currently 65, Creatinine 1.3. CT angiogram of the chest revealed pulmonary emphysema and pulmonary interstitial fibrotic changes. No evidence of pulmonary embolism. He is currently on dexamethasone, vitamin C, zinc. Patient has been evaluated by pulmonary service who cleared him for discharge Problems and management plan were discussed with the patient and he verbalized understanding and acceptance Patient was found stable and can be discharged home however he needs follow-up as an outpatient. Patient was instructed to follow up with PCP w Dr. English rosas one week and patient agrees Gen: patient is a AAOx3, no distress CVS: S1-S2, RRR, no murmur Lungs: B/L CTA, no wheezing Abdomen: soft, no distention, no tenderness, positive bowel sounds Extremity: no leg edema or induration Patient Condition at Discharge: Good Plan - Discharge Summary Discharge Rx Participant: Yes New Discharge Prescriptions: New dexAMETHasone [Dexamethasone] 2 mg PO DIRECTED #15 tablet Zinc Sulfate [Orazinc] 220 mg PO DAILY cap Albuterol Inhaler [Ventolin Hfa Inhaler] 2 puff INHALATION RT-TID puff Heparin Sodium,Porcine [Heparin Sodium] 5,000 unit SQ Q8HR 30 Days vial Continue bisacodyL [Dulcolax] 10 mg RECTAL DAILY PRN PRN Reason: Constipation Med Plus 90 ml PO TID@0900,1300,1999 Acetaminophen Tab [Tylenol] 650 mg PO Q4H PRN PRN Reason: Pain Or Fever > 100.5 Timolol 0.5% Ophth Soln [Timoptic 0.5% Ophth Soln] 1 drop BOTH EYES BID@0700,2099 Sucralfate [Carafate] 1 gm PO BID@0700,2099 Eltrombopag Olamine [Promacta] 50 mg PO HS@2099 Isosorbide Mononitrate ER [Imdur] 30 mg PO DAILY@07 Dorzolamide 2% [Trusopt 2%] 1 drops BOTH EYES DAILY@0700 Atorvastatin [Lipitor] 20 mg PO HS@2099 Ascorbic Acid [Vitamin C] 1,000 mg PO DAILY@0700 Discharge Medication List Acetaminophen Tab [Tylenol] 650 mg PO Q4H PRN 01/04/20 [History] Ascorbic Acid [Vitamin C] 1,000 mg PO DAILY@0700 01/04/20 [History] Atorvastatin [Lipitor] 20 mg PO HS@209901/04/20 [History] Dorzolamide 2% [Trusopt 2%] 1 drops BOTH EYES DAILY@0700 01/04/20 [History] Eltrombopag Olamine [Promacta] 50 mg PO HS@209901/04/20 [History] Isosorbide Mononitrate ER [Imdur] 30 mg PO DAILY@0700 01/04/20 [History] Med Plus 90 ml PO TID@0900,1300,199901/04/20 [History] Sucralfate [Carafate] 1 gm PO BID@07,209901/04/20 [History] Timolol 0.5% Ophth Soln [Timoptic 0.5% Ophth Soln] 1 drop BOTH EYES BID@0700,209901/04/20 [History] bisacodyL [Dulcolax] 10 mg RECTAL DAILY PRN 01/04/20 [History] Albuterol Inhaler [Ventolin Hfa Inhaler] 2 puff INHALATION RT-TID puff 01/08/20 [Rx] Heparin Sodium,Porcine [Heparin Sodium] 5,000 unit SQ Q8HR 30 Days vial 01/08/20 [Rx] Zinc Sulfate [Orazinc] 220 mg PO DAILY cap 01/08/20 [Rx] dexAMETHasone [Dexamethasone] 2 mg PO DIRECTED #15 tablet 01/08/20 [Rx] Follow up Appointment(s)/Referral(s): Johnathon Blankenship MD [Primary Care Provider] - 1-2 days Activity/Diet/Wound Care/Special Instructions: Patient should be quarantined until he is cleared by a physician heart healthy diet Activities restricted until you see your doctor Discharge Disposition: TRANSFER TO SNF/ECF
--- NOTE | 2020-01-08 15:24 | P.PN ---
Subjective Progress Note Date: 01/08/20 Principal diagnosis: COVID 19 infection This is a 74-year-old gentleman with a known history of COPD, gastric esophageal reflux is, hypertension, chronic kidney disease, hydrocephalus, dysphagia. He resides at [facility]. He was found to be coasted 19 posit maria victoria as there was an outbreak in that facility. He was transferred to [facility] and subsequently transferred here. The patient had no complaints. He had denied any headache weakness shortness of breath cough or congestion. He was 97% on room air. He was completely asymptomatic yesterday. He is seen again today in follow-up on the regular medical floor. Currently maintaining O2 saturations at 99% on room air. Temperature 98.6. Hemodynamically stable. White count 8.2. Hemoglobin 12.0. Sodium 138. Potassium 4.6. Creatinine 1.3. CT angiogram of the chest revealed pulmonary emphysema and pulmonary interstitial fibrotic changes. No evidence of pulmonary embolism. He is curr ently on dexamethasone, vitamin C, zinc. On 01/07/2020 patient seen in follow-up on general medical surgical floor. He is awake and alert, in no acute distress, he is resting comfortably in bed, he denies any cough, he is breathing comfortably, no nausea or vomiting, patient is slightly confused at times, safety precautions are in place. Has no specific complaints. There is to be in no acute distress. He doesn't remember the pulse ox 90-99%, his been afebrile, his respirations are nonlabored, he has had no acute events overnight On 01/01/2020 patient seen in follow-up general medical surgical floor. He is resting quietly in bed, denies any shortness of breath, no cough or congestion, he is on room air pulse ox of 97-99%, afebrile, lung sounds are clear, breathing sees to be comfortable. Denies nausea vomiting or diarrhea. His had no fever or chills in the last 24 hours. No new labs today. His COVID 19 PCR was positive Objective - Vital Signs Vital signs: Vital Signs Temp 98.0 F 01/08/20 07:00 Pulse 47 L 01/08/20 07:00 Resp 20 01/08/20 07:00 BP 144/72 01/08/20 07:00 Pulse Ox 99 01/08/20 07:00 Intake & Output 01/07/20 01/08/20 01/08/20 18:59 06:59 18:59 Intake Total 300 300 Balance 300 300 Intake: Oral 300 300 Other: Voiding Method Diaper Urinal Incontinent Diaper Incontinent # Voids 2 1 - Exam GENERAL EXAM: Alert, 74-year-old gentleman, on room air pulse ox of 99%, comfortable in no apparent distress. HEAD: Normocephalic. EYES: Normal reaction of pupils, equal size. NOSE: Clear with pink turbinates. THROAT: No erythema or exudates. NECK: No masses, no JVD. CHEST: No chest wall deformity. LUNGS: Equal air entry with no crackles, wheeze, rhonchi or dullness. CVS: S1 and S2 normal with no audible murmur, regular rhythm. ABDOMEN: No hepatosplenomegaly, normal bowel sounds, no guarding or rigidity. SPINE: No scoliosis or deformity SKIN: No rashes CENTRAL NERVOUS SYSTEM: Brief but nonfocal, tone is normal in all 4 extremities. EXTREMITIES: There is no peripheral edema. No clubbing, no cyanosis. Peripheral pulses are intact. - Labs CBC & Chem 7: 01/07/20 05:49 01/07/20 05:49 Labs: Abnormal Lab Results - Last 24 Hours (Table) 01/07/20 01/07/20 01/07/20 Range/Units 05:49 11:20 16:30 BUN 36.0 H (9.0-27.0) mg/dL BUN/Creatinine Ratio 32.73 H (12.00-20.00) Ratio POC Glucose (mg/dL) 153 H (75-99) mg/dL Coronavirus (PCR) Detected H (Not Detected) 01/07/20 01/08/20 Range/Units 20:09 11:38 BUN (9.0-27.0) mg/dL BUN/Creatinine Ratio (12.00-20.00) Ratio POC Glucose (mg/dL) 139 H 109 H (75-99) mg/dL Coronavirus (PCR) (Not Detected) Assessment and Plan Plan: Assessment: 1 Covid 19 positivity, asymptomatic 2 History of chronic obstructive pulmonary disease, currently inactive in stable 3 History of previous tobacco use 4 Gastroesophageal reflux disease 5 Hypertension 6 Chronic kidney disease 7 Hyperlipidemia 8 History of hydrocephalus 9 History of dysphagia Plan: Covid 19 PCR came back positive however patient has been asymptomatic, no fever, no chills no shortness of breath, he is on room air, vital signs have been stable. No nausea vomiting no diarrhea, no specific complaints. Discharge is in progress for transfer to the [facility]. I performed a history & physical examination of the patient and discussed their management with my nurse practitioner, Stephenie Dawn. I reviewed the nurse practitioner's note and agree with the documented findings and plan of care. Lung sounds are positive for diffuse wheezes throughout the lung echevarria. The findings and the impression was discussed with the patient. I attest to the documentation by the nurse practitioner. Time with Patient: Less than 30
[2020-01-08 16:06] VITALS: BP 109/60; PULSE 51
--- NOTE | 2020-01-10 07:52 | CDI ---
Documentation Clarification Form Date: 01/10/20 From: Mirian Herrera CCS Phone: If you have a question about this query, please contact Farnaz Coulter, Automotive Parts Clerk at [phone] between 8am and 5pm. Admit Date: 01/07/20 Discharge Date: 01/08/20 Patient Name: Jon Phelps Visit Number: [id number] ATTENTION: The Clinical Documentation Specialists (CDI) and [facility] Coding Staff appreciate your assistance in clarifying documentation. Please respond to the clarification below the line at the bottom and electronically sign. The CDI & [facility] Coding staff will review the response and follow-up if needed. Please note: Queries are made part of the Legal Health Record. If you have any questions, please contact the author of this message via ITS. Dear Dr. Riggs, CKD is documented in the H&P, Consult, PNs, DS. History/Risk Factors: HTN, CKD, COPD, HX alcohol abuse, HX tobacco, COVID PNA Clinical Indicators: Hypertensive CKD Current BUN: 27.50, 30.77, 32.73 CR: 1.12, 1.2, 1.3 GFR: 66, 60.1, 54.5 Treatment: Monitor In order to capture the severity of condition, please clarify the stage of the CKD, if known: CKD Stage 1 (GFR > 90) CKD Stage 2 (GFR 60-89) CKD Stage 3A Moderate (GFR 45-59) CKD Stage 3B Moderate (GFR 30-44) CKD Stage 4 (GFR 15-29) CKD Stage 5 (GFR <15) ESRD Other, please specify Unable to determine no ckd MTDD
== END 2020-01-08 16:12 | DRG 177 ==
LOC: EC 08:34 → EEVIPCON 08:34 → EC 12:14 → 4SSUR 15:04 → OBSVTOIN 01-07 08:03
PROVIDERS: ADMIT Hospitalist; ATTEND Hospitalist
DX: U07.1 COVID-19 (principal); J12.89 Other viral pneumonia; G93.41 Metabolic encephalopathy; F25.0 Schizoaffective disorder, bipolar type; J84.10 Pulmonary fibrosis, unspecified; J43.9 Emphysema, unspecified; K21.9 Gastro-esophageal reflux disease without esophagitis; F41.9 Anxiety disorder, unspecified; M19.90 Unspecified osteoarthritis, unspecified site; I10 Essential (primary) hypertension; F32.9 Major depressive disorder, single episode, unspecified; F10.11 Alcohol abuse, in remission; R74.02 Elevation of levels of lactic acid dehydrogenase [LDH]; R79.82 Elevated C-reactive protein (CRP); E78.5 Hyperlipidemia, unspecified; R79.89 Other specified abnormal findings of blood chemistry; Z79.899 Other long term (current) drug therapy; Z87.891 Personal history of nicotine dependence; Z86.69 Personal history of other diseases of the nervous system and sense organs; Z88.8 Allergy status to other drugs, medicaments and biological substances
CPT/HCPCS: 71045; 71275; 80048; 80053; 83615; 84145; 85025; 85379; 85652; 86140; 93005; 94640; 99285